=== PATIENT | female | born 1940 | race Caucasian/White ===

== ENCOUNTER 2018-11-19 22:57 | Emergency (ER) | payer MEDICARE, OTHER, MEDICAID ==
[2018-11-19] MEDS: IBUPROFEN 600 MG TAB PO (23:45)
[2018-11-19] MEDS: ONDANSETRON (ODT) 4 MG TAB ODT (23:45)
== END 2018-11-20 01:37 | disposition home or self-care (01) ==
LOC: E/R 22:57
DX: M25.552 Pain in left hip (principal); M79.605 Pain in left leg; R07.81 Pleurodynia; I10 Essential (primary) hypertension; R40.2142 Coma scale, eyes open, spontaneous, at arrival to emergency department; R40.2362 Coma scale, best motor response, obeys commands, at arrival to emergency department
CPT/HCPCS: 71100; 73510; 99284-25